=== PATIENT | male | born 1930 | race Caucasian/White ===

== ENCOUNTER → 2016-05-03 12:58 | Outpatient (CLI) | payer MEDICARE, OTHER ==
[2016-03-27 10:42] VITALS: BMI 35.3
[~2016-05-03 12:58] MED LIST: ASMANEX0.24 GM INH; ESGIC TABLET1 TAB PO; EXELON1 PATCH .2 TRANSDERM; FUROSEMIDE40 MG PO; HYDROCODONE-APA1 TAB PO; MEDROL4 MG PO; NEURONTIN 300300 MG PO; PROVENTIL HFA6.7 GM INH; RESTORIL15 MG PO; RESTORIL7.5 MG PO
== END | disposition home or self-care (01) ==
LOC: D.CT 12:58
DX: I62.9 Nontraumatic intracranial hemorrhage, unspecified (principal)

== ENCOUNTER 2017-04-03 19:06 | Emergency (ER) | payer MEDICARE, OTHER ==
[2016-03-27 10:42] VITALS: BMI 35.3
== END 2017-04-03 21:15 | disposition home or self-care (01) ==
LOC: D.ER 19:06
DX: R51 Headache (principal); R42 Dizziness and giddiness; Z86.69 Personal history of other diseases of the nervous system and sense organs; Z87.09 Personal history of other diseases of the respiratory system; Z86.79 Personal history of other diseases of the circulatory system

== ENCOUNTER 2017-07-19 23:28 | Emergency (ER) | payer MEDICARE, OTHER ==
[2016-03-27 10:42] VITALS: BMI 35.3
== END 2017-07-20 01:35 | disposition home or self-care (01) ==
LOC: D.ER 23:28
DX: J44.1 Chronic obstructive pulmonary disease with (acute) exacerbation (principal); J20.9 Acute bronchitis, unspecified; J06.9 Acute upper respiratory infection, unspecified

== ENCOUNTER 2018-11-16 09:42 | Emergency (ER) | payer MEDICARE, OTHER ==
[~2018-11-16] VITALS: Ht 185.4 cm; Wt 106.8 kg
[2018-11-16 09:48] VITALS: Ht 185.4 cm; Wt 106.8 kg
[2018-11-16] MEDS ORDERED: LYRICA100 MG PO ×2 (09:50)
[2018-11-16] MEDS ORDERED: MOBIC7.5 MG PO (09:51)
[2018-11-16 10:23] LABS: APTT 25.1 SECONDS (22.8-39.4); INR 0.98 (0.85-1.17); PROTIME 12.5 SECONDS (11.6-15.0)
[2018-11-16 10:28] LABS: HEMATOCRIT 44.9 % (42.0-54.0); HEMOGLOBIN 15.4 g/dL (13.5-17.5); LYMPHOCYTES 21.9 % (15-50); MCH 30.2 pg (26.0-34.0); MCHC 34.3 g/dL (31.0-37.0); MEAN PLATELET VOLUME 10.7 fL (7.4-10.4); NEUTROPHILS 69.9 % (40-80); WBC 6.8 10x3/uL (4.8-10.8)
[2018-11-16 10:29] LABS: ALBUMIN 3.7 g/dL (3.4-5.0); ALKALINE PHOSPHATASE 118 U/L (46-116); ALT (SGPT) 13 U/L (10-68); BILIRUBIN - TOTAL 0.64 mg/dL (0.2-1.3); CALC OSMOLALITY 282 mosm/kg (275-300); CALCIUM 8.6 mg/dL (8.5-10.1); CARBON DIOXIDE 26.6 mmol/L (21.0-32.0); CHLORIDE - SERUM 105 mmol/L (98-107); CREATININE - SERUM 1.3 mg/dL (0.6-1.3); GLUCOSE 111 mg/dL (74-106); PLATELET COUNT 120 10x3/uL (130-400); POTASSIUM - SERUM 4.2 mmol/L (3.5-5.1); PROTEIN - SERUM 6.8 g/dL (6.4-8.2); SODIUM 140 mmol/L (136-145); UREA NITROGEN 21 mg/dL (7-18); eGFR NON AFRICAN AMERICAN 55 mL/min (90-120)
[2018-11-16 10:40] LABS: CKMB 1.1 U/L (0.0-3.6); CREATINE KINASE 62 UL (21-232); PRO BNP 49 pg/mL (0-450)
[2018-11-16 10:42] LABS: TROPONIN-I < 0.017 ng/mL (0.000-0.060)
[2018-11-16] MEDS ORDERED: AUGMENTIN 875-11 TAB PO (11:08)
[2018-11-16] MEDS ORDERED: FLUTICASONE PRO16 GM NASAL (11:08)
[2018-11-16 11:49] VITALS: BP 146/76
== END 2018-11-16 11:40 | disposition home or self-care (01) ==
LOC: D.ER 09:42
PROVIDERS: Family Medicine
DX: J32.9 Chronic sinusitis, unspecified (principal); R42 Dizziness and giddiness; F03.90 Unspecified dementia, unspecified severity, without behavioral disturbance, psychotic disturbance, mood disturbance, and anxiety; J44.9 Chronic obstructive pulmonary disease, unspecified; I48.91 Unspecified atrial fibrillation

== ENCOUNTER 2019-05-11 08:14 | Emergency (ER) | payer MEDICARE, OTHER ==
[~2019-05-11] VITALS: Ht 185.4 cm; Wt 96.8 kg
[~2019-05-11 08:14] MED LIST changes: +AUGMENTIN 875-11 TAB PO; +FLUTICASONE PRO16 GM NASAL; +LYRICA100 MG PO; +MOBIC7.5 MG PO
[2019-05-11 08:23] VITALS: Ht 185.4 cm; Wt 96.8 kg
[2019-05-11 09:00] LABS: BASOPHILS 0.4 % (0-2); EOSINOPHILS 1.6 % (0-7); HEMATOCRIT 46.2 % (42.0-54.0); HEMOGLOBIN 15.2 g/dL (13.5-17.5); IMMATURE GRANULOCYTES 0.3 % (0-5); MCH 29.7 pg (26.0-34.0); MCHC 32.9 g/dL (31.0-37.0); MCV 90.2 fL (80.0-100.0); MEAN PLATELET VOLUME 11.8 fL (7.4-10.4); MONOCYTES 6.3 % (2-11); NEUTROPHILS 74.4 % (40-80); PLATELET COUNT 137 10x3/uL (130-400); RBC 5.12 10x6/uL (4.20-6.10); RDW 13.4 % (11.5-14.5); WBC 7.4 10x3/uL (4.8-10.8)
[2019-05-11 09:12] LABS: APTT 25.5 SECONDS (22.8-39.4); INR 1.01 (0.85-1.17); PROTIME 13.2 SECONDS (11.6-15.0)
[2019-05-11 09:13] LABS: CALC OSMOLALITY 288 mosm/kg (275-300); CALCIUM 8.8 mg/dL (8.5-10.1); CARBON DIOXIDE 26.9 mmol/L (21.0-32.0); CHLORIDE - SERUM 108 mmol/L (98-107); CREATININE - SERUM 1.1 mg/dL (0.6-1.3); GLUCOSE 116 mg/dL (74-106); POTASSIUM - SERUM 3.9 mmol/L (3.5-5.1); SODIUM 143 mmol/L (136-145); UREA NITROGEN 22 mg/dL (7-18); eGFR NON AFRICAN AMERICAN 67 mL/min (90-120)
[2019-05-11 09:27] LABS: ALBUMIN 3.5 g/dL (3.4-5.0); ALKALINE PHOSPHATASE 130 U/L (46-116); ALT (SGPT) 20 U/L (10-68); CKMB 1.5 U/L (0.0-3.6); CREATINE KINASE 63 UL (21-232); PRO BNP 508 pg/mL (0-450); PROTEIN - SERUM 6.6 g/dL (6.4-8.2)
[2019-05-11 09:28] LABS: TROPONIN-I < 0.017 ng/mL (0.000-0.060)
[2019-05-11 10:57] LABS: APPEARANCE CLEAR (CLEAR); BACTERIA FEW /hpf (NEGATIVE); BILIRUBIN NEGATIVE (NEGATIVE); COLOR YELLOW (YELLOW); EPITHELIAL CELLS RARE /hpf (0-5); GLUCOSE NEGATIVE (NEGATIVE); KETONE NEGATIVE (NEGATIVE); NITRITE NEGATIVE (NEGATIVE); PROTEIN NEGATIVE (NEGATIVE); RED CELLS - URINE 0-5 /hpf (0-5); UROBILINOGEN NORMAL (NORMAL); WHITE CELLS - URINE OCC /hpf (NEGATIVE)
[2019-05-11 14:02] VITALS: BP 142/76
[2019-05-11] MEDS ORDERED: MECLIZINE HCL25 MG PO (14:26)
== END 2019-05-11 14:40 | disposition home or self-care (01) ==
LOC: D.ER 08:14
PROVIDERS: Family Medicine
DX: R41.82 Altered mental status, unspecified (principal); R42 Dizziness and giddiness; R06.02 Shortness of breath; I48.91 Unspecified atrial fibrillation; J44.9 Chronic obstructive pulmonary disease, unspecified